=== PATIENT | female | born 1955 | race African-American/Black ===

== ENCOUNTER 2020-02-01 20:05 | Emergency (ER) | payer OTHER ==
[~2020-02-01] VITALS: Ht 167.6 cm; Wt 83.9 kg
[2020-02-01 21:50] VITALS: BP 126/79
== END 2020-02-01 22:15 | disposition left against medical advice (07) ==
LOC: ER 20:05
DX: M54.9 Dorsalgia, unspecified (principal); H53.8 Other visual disturbances; Z53.21 Procedure and treatment not carried out due to patient leaving prior to being seen by health care provider